=== PATIENT | female | born 1960 | race Caucasian/White ===

== ENCOUNTER 2021-08-14 12:52 | Outpatient (RCR) | payer BC | END 2021-08-26 | disposition still patient (30) | LOC: PT | DX: M54.12 Radiculopathy, cervical region (principal) ==

== ENCOUNTER → 2021-08-14 | Outpatient (CLI) | payer BC | LOC: RAD 16:21 | DX: M51.16 Intervertebral disc disorders with radiculopathy, lumbar region (principal); E04.1 Nontoxic single thyroid nodule ==

== ENCOUNTER 2021-08-28 09:25 | Outpatient (RCR) | payer BC | END 2021-09-25 | disposition home or self-care (01) | LOC: PT | DX: M54.12 Radiculopathy, cervical region (principal) ==